=== PATIENT | female | born 1985 | race Caucasian/White ===

== ENCOUNTER → 2016-11-07 | Outpatient (CLI) | payer BC ==
[2014-09-10 16:29] VITALS: BP 112/56
[~2016-11-07] MED LIST: ALBU2.5V5 NEB; AZIT250T PO; DIPH25CA58 PO; IOHEXOL 240 MG/ML 50ML VIAL. ONE; IOHEXOL 300 MG/ML 75 ML VIAL. IV ONE; OSEL75CA PO; PRED50TA PO; PROM25SU32 RC
[2016-11-07 11:20] LABS: ALBUMIN 3.7 g/dL (3.4-5.0); ALBUMIN/GLOBULIN RATIO 1.3 (1.0-1.7); CALCIUM 8.6 mg/dL (8.5-10.1); GFR 63.9; POTASSIUM 4.2 mmol/L (3.5-5.1); TOTAL BILIRUBIN 0.4 mg/dL (0.2-1.0); TOTAL PROTEIN 6.6 g/dL (6.4-8.2)
--- NOTE | 2016-11-07 11:38 | RAD ---
Indication: Abdominal pain. Axial imaging through the abdomen and pelvis was performed after the administration of intravenous contrast. No prior studies are available for comparison. The lung bases are clear. The liver and gallbladder are unremarkable. Pancreas and spleen are unremarkable. No adrenal mass is identified. The kidneys are unremarkable. Aorta is nonaneurysmal. Evaluation of the bowel loops show focal "target sign" within the right para midline central abdomen image 33 series 2. This is identified image 14 on the coronal reconstructions and image 4 on the sagittal reconstructions. This is consistent with a focal small bowel to small bowel intussusception. However, no bowel obstruction is seen. No significant dilatation is identified. No wall thickening or pneumatosis is identified. There is no free air. There is no ascites. The bladder, uterus and ovaries are unremarkable apart from an IUD within the uterus which appears to be retroverted. Impression: Findings consistent with a focal small bowel to small bowel intussusception in the central abdomen. No bowel obstruction, pneumatosis, free air or abscess is identified. The study is otherwise unremarkable. PQRS Compliance Statement: One or more of the following individualized dose reduction techniques were utilized for this examination: 1. Automated exposure control 2. Adjustment of the mA and/or kV according to patient size 3. Use of iterative reconstruction technique
[2016-11-08 01:27] LABS: HCV ANTIBODY <0.1 s/co ratio (0.0-0.9); HEP B SURFACE ABDY Non Reactive (.)
[2016-11-09 15:07] LABS: GLIA IGA 1 units (0-19); GLIA IGG 2 units (0-19); TRANSGLUTAMINASE IGA AB <2 U/mL (0-3); TRANSGLUTAMINASE IGG AB <2 U/mL (0-5)
== END | disposition home or self-care (01) ==
LOC: CT 09:30
PROVIDERS: ATTEND Internal Medicine Gastroenterology
DX: K56.1 Intussusception (principal); Z97.5 Presence of (intrauterine) contraceptive device
CPT/HCPCS: 36415; 74177; 80053; 86706; 86803; 87340; Q9966; Q9967; 83516

== ENCOUNTER 2019-11-28 14:30 | Emergency (ER) | payer BC ==
[~2019-11-28] VITALS: Ht 162.6 cm; Wt 73.0 kg
[~2019-11-28 14:30] MED LIST changes: -IOHEXOL 240 MG/ML 50ML VIAL. ONE; -IOHEXOL 300 MG/ML 75 ML VIAL. IV ONE
[2019-11-28 14:33] VITALS: BP 112/56
--- NOTE | 2019-11-28 15:10 | PHYS DOC ---
Past History Past Medical History: Asthma, Other Past Surgical History: No Surgical History Smoking: Non-smoker Alcohol Use: Occasionally Drug Use: None Adult General Chief Complaint Chief Complaint: MECHANICAL FALL HPI HPI Patient is a 34 year old female who presents with complaint of jaw pain. The patient states that she had an accidental fall early yesterday morning at 0100. The patient states that she accidentally tripped and fell forward in her own home, striking her jaw on metal weightlifting plates in her home. She states that she had been drinking alcohol when this occurred. Notes that she is having pain along the left side of her jaw. States that the pain worsens when opening her mouth. Patient also is having pain near her left eye which she states also resulted as part of this fall. She states that she went to urgent care today and after their evaluation, they advised her to come to the emergency department for further evaluation due to concern for possible jaw fracture. Denies doubling or loss of vision. Denies any other injuries. States that she is safe in her home and denies any other complaints. States that she took ibuprofen and Tylenol earlier today at 1000 with mild relief in pain symptoms. Review of Systems Review of Systems Constitutional: Denies fever or chills [] Eyes: Denies change in visual acuity, redness, or eye pain [] HENT: Jaw pain, denies nasal congestion or sore throat [] Respiratory: Denies cough or shortness of breath [] Cardiovascular: No additional information not addressed in HPI [] GI: Denies abdominal pain, nausea, vomiting, bloody stools or diarrhea [] : Denies dysuria or hematuria [] Musculoskeletal: Denies back pain or joint pain [] Integument: Denies rash or skin lesions [] Neurologic: Denies headache, focal weakness or sensory changes [] All other systems were reviewed and found to be within normal limits, except as documented in this note. Allergies Allergies Allergies Coded Allergies Type Severity Reaction Last Updated Verified No Known Drug Allergies 11/10/13 No Physical Exam Physical Exam Constitutional: Alert, afebrile, no acute distress. [] HENT: Normocephalic, small ecchymosis present along the inferior lateral portion of left periorbitum, ecchymosis present along left mandibular ridge extending towards chin, tenderness to palpation at angle of left mandible and near the anterior portion of right mandible, bilateral external ears normal, oropharynx moist, no oral exudates, nose normal. [] Eyes: PERRLA, EOMI, conjunctiva normal, no discharge. [] Neck: Normal range of motion, no tenderness, supple, no stridor. [] Cardiovascular:Heart rate regular rhythm, no murmur [] Lungs & Thorax: Bilateral breath sounds clear to auscultation [] Abdomen: Bowel sounds normal, soft, no tenderness, no masses, no pulsatile masses. [] Skin: Warm, dry, no erythema, no rash. [] Back: No tenderness, no CVA tenderness. [] Extremities: No tenderness, no cyanosis, no clubbing, ROM intact, no edema. [] Neurologic: Alert and oriented X 3, normal motor function, normal sensory function, no focal deficits noted. [] Current Patient Data Lab Results Not performed EKG EKG Not performed [] Radiology/Procedures Radiology/Procedures [address] [address] IMAGING REPORT Signed PATIENT: KALEIGH GUERRA ACCOUNT: [id number] : 1985 LOCATION: ER AGE: 34 SEX: F EXAM STATUS: REG ER ORD. PHYSICIAN: KATHERIN DONAHUE MD REASON: fall, head and facial trauma , unable to remove earrings PROCEDURE: CT HEAD AND MAXILLOFACIAL WO CT HEAD AND MAXILLOFACIAL WO Date: 11/28/2019 2:54 PM Clinical Indication: fall, head and facial trauma , unable to remove earrings Comparison: None. Technique: 5 mm axial tomographic images were obtained of the head without contrast. These were viewed on brain and bone windows. Axial helical images of the face were obtained without contrast. Axial and coronal reconstruction was performed. One or more of the following dose reduction techniques were utilized: Automated exposure control (AEC), Adjustment of mA and/or kV according to patient size, Use of iterative reconstruction technique such as ASiR, CT scan done according to ALARA and image gently/image wisely CT HEAD FINDINGS: The brain parenchyma is normal in attenuation. No intra- or extra-axial mass or fluid collection. No acute hemorrhage. The ventricles are normal in size, shape, and morphology. The soria-white matter junction is normal. The basilar cisterns are patent. The mastoid air cells are clear. No aggressive osseous lesion or fracture. CT FACE FINDINGS: There is no acute facial bone fracture. The paranasal sinuses are clear. The orbits are normal. The globes are intact. The nasal septum is deviated to the right anteriorly. Elongation of the styloid processes/ossification of the stylohyoid ligaments. Impression: 1. No acute intracranial process. 2. No acute facial bone fracture. Electronically signed by: Vladimir Lynch MD (11/28/2019 3:27 PM) [id number] DICTATED AND SIGNED BY: VLADIMIR LYNCH MD DATE: 11/28/19 1527 CC: KATHERIN DONAUHE MD; KEERTHI CUELLAR ~ [] Course & Med Decision Making Course & Med Decision Making Pertinent Labs and Imaging studies reviewed. (See chart for details) CT imaging negative. Patient's evaluation appears consistent with facial contusions. Advise continued RICE therapy at home and recommended follow-up in 1 week with primary doctor for reevaluation. Advised return to the emergency department for any worsening symptoms. Patient voiced understanding and agreement with treatment plan. [] Dragon Disclaimer Dragon Disclaimer This electronic medical record was generated, in whole or in part, using a voice recognition dictation system. Departure Departure: Impression: Primary Impression: Contusion of mandibular joint area Additional Impressions: Periorbital contusion of left eye Closed head injury Disposition: 01 HOME/RESIDENCE PRIOR TO ADM Condition: STABLE Referrals: KEERTHI CUELLAR (PCP) Patient Instructions: Facial or Scalp Contusion, Head Injury, Adult Additional Instructions: Follow-up with your primary care provider in the next 7 days if symptoms or not improving. Return to the emergency department for any worsening symptoms. Problem Qualifiers Primary Impression: Contusion of mandibular joint area Encounter type: initial encounter Qualified Codes: S00.83XA - Contusion of other part of head, initial encounter Additional Impressions: Periorbital contusion of left eye Encounter type: initial encounter Qualified Codes: S05.12XA - Contusion of eyeball and orbital tissues, left eye, initial encounter Closed head injury Encounter type: initial encounter Qualified Codes: S09.90XA - Unspecified injury of head, initial encounter KATHERIN DONAHUE MD November 28, 2019 15:10
--- NOTE | 2019-11-28 15:30 | RAD ---
CT HEAD AND MAXILLOFACIAL WO Date: 11/28/2019 2:54 PM Clinical Indication: fall, head and facial trauma , unable to remove earrings Comparison: None. Technique: 5 mm axial tomographic images were obtained of the head without contrast. These were viewed on brain and bone windows. Axial helical images of the face were obtained without contrast. Axial and coronal reconstruction was performed. One or more of the following dose reduction techniques were utilized: Automated exposure control (AEC), Adjustment of mA and/or kV according to patient size, Use of iterative reconstruction technique such as ASiR, CT scan done according to ALARA and image gently/image wisely CT HEAD FINDINGS: The brain parenchyma is normal in attenuation. No intra- or extra-axial mass or fluid collection. No acute hemorrhage. The ventricles are normal in size, shape, and morphology. The soria-white matter junction is normal. The basilar cisterns are patent. The mastoid air cells are clear. No aggressive osseous lesion or fracture. CT FACE FINDINGS: There is no acute facial bone fracture. The paranasal sinuses are clear. The orbits are normal. The globes are intact. The nasal septum is deviated to the right anteriorly. Elongation of the styloid processes/ossification of the stylohyoid ligaments. Impression: 1. No acute intracranial process. 2. No acute facial bone fracture. Electronically signed by: Broderick Lynch MD (11/28/2019 3:27 PM) [id number]
== END 2019-11-28 16:06 | disposition home or self-care (01) ==
LOC: ER 14:30
DX: S00.83XA Contusion of other part of head, initial encounter (principal); S05.12XA Contusion of eyeball and orbital tissues, left eye, initial encounter; J45.909 Unspecified asthma, uncomplicated; W01.0XXA Fall on same level from slipping, tripping and stumbling without subsequent striking against object, initial encounter; Y93.89 Activity, other specified; Y92.89 Other specified places as the place of occurrence of the external cause; Y99.8 Other external cause status
CPT/HCPCS: 70450; 70486; 99285-25

== ENCOUNTER → 2020-01-07 | Outpatient (CLI) | payer BC ==
--- NOTE | 2020-01-07 15:10 | RAD ---
Examination: Ultrasound abdomen complete HISTORY: History of elevated liver function tests COMPARISON: None available. FINDINGS: The liver length measures 14.4 cm . The echogenicity of the liver grossly appears unremarkable. The common bile duct measures 2 mm in diameter. The right kidney measures 10.4 x 4.8 x 4.1 cm. The left kidney measures 10.3 x 4.6 x 5.8 cm. The spleen measures 9.2 cm in length. No evidence of gallstones. The visualized aorta, IVC within normal limits of dimension. The visualized pancreas grossly appears unremarkable. IMPRESSION: Unremarkable visualized exam. Electronically signed by: Karlos Dubon MD (01/07/2020 3:06 PM) [id number]
== END ==
LOC: US 13:53
PROVIDERS: ATTEND Physician Assistant Medical
DX: R79.89 Other specified abnormal findings of blood chemistry (principal)
CPT/HCPCS: 76700

== ENCOUNTER 2020-09-14 03:47 | Emergency (ER) | payer BC ==
[~2020-09-14] VITALS: Ht 162.6 cm; Wt 73.0 kg
[2020-09-14] MEDS ORDERED: IPRATRPIUM/ALBUTEROL 0.5/2.5MG 3 ML NEBU. ONE (03:54)
--- NOTE | 2020-09-14 03:57 | PHYS DOC ---
Past History Past Medical History: Asthma, Other Past Surgical History: No Surgical History Smoking: Non-smoker Alcohol Use: Occasionally Drug Use: None General Adult EDM: Chief Complaint: ASTHMA HPI: HPI: "..I can't ... breath... It... got ... bad... to... night...".." I fell..hit my back... ".." That .. seemed ... to ... start it ... off...' Patient is a 35 year old female who presents with acute respiratory distress. Patient again tried proposition and hypoxic on room air. Accessory muscle use with intercostal retraction. Patient has history of asthma. Has had exacerbations in the past. Not currently on steroids. Patient never been intubated for asthma exacerbations. Patient recently fell and abraded her back. Patient has not been on steroids for more than a month. Patient up-to-date with other vaccinations. No recent travel. No severe contacts. . Patient states in the past is only used steroids possibly twice a year. Pt. normally follows with [facility]. Review of Systems: Review of Systems: Constitutional: Denies fever or chills Eyes: Denies change in visual acuity HENT: Denies nasal congestion or sore throat Respiratory: Complains of cough and shortness of breath Cardiovascular: Complains of chest pain at area of abrasion and contusion on back. GI: Denies abdominal pain, nausea, vomiting, bloody stools or diarrhea : Denies dysuria Musculoskeletal: Denies back pain or joint pain Integument: Denies rash Neurologic: Denies headache, focal weakness or sensory changes Endocrine: Denies polyuria or polydipsia Lymphatic: Denies swollen glands Psychiatric: Denies depression or anxiety Family History: Family History: Noncontributory to presentation Current Medications: Current Meds: Current Medications Medications (Trade) Dose Ordered Sig/Wendy Start Time Stop Time Status Last Admin Dose Admin Albuterol/ Ipratropium (Duoneb) 3 ml STK-MED ONCE 09/14/20 03:54 09/14/20 03:55 DC Allergies: Allergies: Allergies Coded Allergies Type Severity Reaction Last Updated Verified No Known Drug Allergies 11/10/13 No Physical Exam: PE: Constitutional: Well developed, well nourished, in acute distress, non-toxic appearance. [] HENT: Normocephalic, atraumatic, bilateral external ears normal, oropharynx moist, no oral exudates, nose: Turbinates clear rhinorrhea Eyes: PERRLA, EOMI, conjunctiva normal, no discharge. [] Neck: Normal range of motion, no tenderness, supple, no stridor. [] Cardiovascular: Tachycardia heart rate regular rhythm, no murmur [] Lungs & Thorax: Bilateral breath sounds equal apex with scattered wheezing throughout on auscultation [] intercostal retraction. Abdomen: Bowel sounds normal, soft, no tenderness, no masses, no pulsatile masses. [] Skin: Warm, dry, no erythema, no rash. Tattoos Back: Spinal tenderness, no CVA tenderness.. Abrasion down spine T6-L1 Extremities: No tenderness, no cyanosis, no clubbing, ROM intact, no edema. [] No cording appreciated. Neurologic: Alert and oriented X 3, normal motor function, normal sensory function, no focal deficits noted. [] Psychologic: Affect anxious, judgement normal, mood normal. [] EKG: EKG: [] Radiology/Procedures: Radiology/Procedures: [][place] [id number] IMAGING REPORT Signed PATIENT: KALEIGH GUERRA ACCOUNT: [id number] : 1985 LOCATION: ER AGE: 35 SEX: F EXAM STATUS: REG ER ORD. PHYSICIAN: NOMAN LEES MD REASON: dyspnea, respiratory failure PROCEDURE: PORTABLE CHEST 1V Chest AP portable at 0355: Reason for examination: Dyspnea and respiratory failure. The heart size is normal. Mediastinum is unremarkable. Lung paulino are hyperaerated but show no infiltrates or pleural effusions.. No acute bony abnormalities are seen. Impression: No acute cardiopulmonary disease. Electronically signed by: Howard Lopes MD (09/14/2020 4:12 AM) [facility] DICTATED AND SIGNED BY: HOWARD LOPES MD DATE: 09/14/20 0411 CC: NOMAN LEES MD; KEERTHI CUELLAR ~MTH0 0 Heart Score: C/O Chest Pain: Yes HEART Score for Chest Pain: HEART Score for Chest Pain Response (Comments) Value History Moderately Suspicious 1 ECG Nonspecific Repolarizatio 1 Age < 45 0 Risk Factors 1 or 2 Risk Factors 1 Troponin < Normal Limit 0 Total 3 Risk Factors: Risk Factors: DM, Current or recent (<one month) smoker, HTN, HLP, family history of CAD, obesity. Risk Scores: Score 0 - 3: 2.5% MACE over next 6 weeks - Discharge Home Score 4 - 6: 20.3% MACE over next 6 weeks - Admit for Clinical Observation Score 7 - 10: 72.7% MACE over next 6 weeks - Early Invasive Strategies Course & Med Decision Making: Course & Med Decision Making Pertinent Labs and Imaging studies reviewed. (See chart for details) Patient started on continuous DuoNeb.. Given Solu-Medrol 125. Morphine 10 mg subcu for abrasion and back pain. Patient given 2 g of magnesium IV. And fluid bolus. Pt. to use MDI two puffs four times a day or Duneb for times a day. Tylenol and Ibuprofen as needed for pain. Vicoprofen for marked pain. Prednisone 50 daily x 5 days. Return if any concerns. Follow up with primary. Flovent two puffs every night. Polysporin 4 x day to abrasion. Impression: 1. Respiratory failure-hypoxia 2. Asthma exacerbation 3. Abrasion contusion to back [] Marilin Disclaimer: Marilin Disclaimer: This electronic medical record was generated, in whole or in part, using a voice recognition dictation system. Departure Departure: Referrals: KEERTHI CUELLAR (PCP) Scripts Fluticasone Propionate (FLOVENT 110MCG HFA) 12 Gm Aer.w.adap 2 PUFF IH BID for asthma , allergy, #1 INHALER 2 Refills Prov: NOMAN LEES MD 09/14/20 Albuterol Sulfate (VENTOLIN HFA INHALER) 18 Gm Hfa.aer.ad 2 PUFF IH PRN Q4HRS PRN for FOR ASTHMA for 90 Days, EACH 0 Refills Prov: NOMAN LEES MD 09/14/20 Ipratropium [place] (ATROVENT HFA) 12.9 Gm Hfa.aer.ad 12.9 GM IH QIDPRN PRN for WHEEZING, #120 INHALER Prov: NOMAN LEES MD 09/14/20 Albuterol Sulfate (ALBUTEROL SULFATE CONC NEB SOLN) 2.5 Mg/0.5 Ml Vial.neb 2.5 MG NEB QIDPRN PRN for WHEEZING, #120 EACH 0 Refills Prov: NOMAN LEES MD 09/14/20 Hydrocodone/Ibuprofen (HYDROCODONE-IBUPROFEN 7.5-200 ) 1 Each Tablet 1 TAB PO PRN Q6HRS PRN for PAIN, #30 TAB 0 Refills Prov: NOMAN LEES MD 09/14/20 Prednisone (PREDNISONE) 50 Mg Tablet 50 MG PO DAILY for asthma for 5 Days, #5 TAB Prov: NOMAN LEES MD 09/14/20 Dragon Disclaimer This chart was dictated in whole or in part using Voice Recognition software in a busy, high-work load, and often noisy Emergency Department environment. It may contain unintended and wholly unrecognized errors or omissions. NOMAN LEES MD Sep 14, 2020 03:57
--- NOTE | 2020-09-14 04:14 | RAD ---
Chest AP portable at 0355: Reason for examination: Dyspnea and respiratory failure. The heart size is normal. Mediastinum is unremarkable. Lung paulino are hyperaerated but show no infil trates or pleural effusions.. No acute bony abnormalities are seen. Impression: No acute cardiopulmonary disease. Electronically signed by: Mandy Alvarez MD (09/14/2020 4:12 AM) [email or web address]
[2020-09-14] MEDS ORDERED: IPRATRPIUM/ALBUTEROL 0.5/2.5MG 3 ML NEBU. NEB ONE ×2 (04:15→04:30)
[2020-09-14] MEDS ORDERED: MORPHINE SULFATE 10 MG/ML SYRINGE. SQ ONE (04:15)
[2020-09-14 04:25] LABS: BASO # 0.1 x10^3/uL (0.0-0.2); BASO % 1 % (0-3); EOS # 0.2 x10^3/uL (0.0-0.7); EOS % 2 % (0-3); HEMOGLOBIN 12.6 g/dL (12.0-15.5); LYMPH # 2.8 x10^3/uL (1.0-4.8); LYMPH % 26 % (24-48); MEAN CORPUSCULAR HEMOGLOBIN 31 pg (25-35); MEAN CORPUSCULAR HGB CONC 33 g/dL (31-37); MEAN CORPUSCULAR VOLUME 95 fL (79-100); MONO # 0.7 x10^3/uL (0.0-1.1); MONO % 6 % (0-9); NEUT # 7.2 x10^3uL (1.8-7.7); NEUT % 66 % (31-73); PLATELET COUNT 264 x10^3/uL (140-400); RED BLOOD COUNT 4.01 x10^6/uL (3.50-5.40); RED CELL DISTRIBUTION WIDTH 13.8 % (11.5-14.5); WHITE BLOOD COUNT 10.9 x10^3/uL (4.0-11.0)
[2020-09-14] MEDS ORDERED: IV RINGERS SOLUTION,LACTATED 1,000 ML IV SCH (04:30)
[2020-09-14] MEDS ORDERED: methylPREDNISolone SOD SUCC PF 125 MG/2 ML VIAL. IV ONE (04:30)
[2020-09-14] MEDS ORDERED: MAGNESIUM SULFATE 2GM 50 ML IV ONE (04:30)
[2020-09-14 04:36] LABS: CREATININE 1.2 mg/dL (0.6-1.0); GFR 50.6; POTASSIUM 3.5 mmol/L (3.5-5.1)
[2020-09-14 04:51] LABS: ALBUMIN 3.9 g/dL (3.4-5.0); DIRECT BILIRUBIN 0.1 mg/dL (0.0-0.2); MAGNESIUM 1.9 mg/dL (1.8-2.4); TOTAL BILIRUBIN 0.2 mg/dL (0.2-1.0)
[2020-09-14] MEDS ORDERED: HYDR-1179 PO (05:02)
[2020-09-14] MEDS ORDERED: PRED50TA PO (05:02)
[2020-09-14] MEDS ORDERED: FLUT12AE IH (05:12)
[2020-09-14] MEDS ORDERED: ALBU2.5V8 IH (05:12)
[2020-09-14] MEDS ORDERED: ALBU2.5V14 NEB (05:12)
[2020-09-14] MEDS ORDERED: IPRA12.9 IH (05:12)
[2020-09-14 05:50] VITALS: BP 106/50
== END 2020-09-14 05:50 | disposition home or self-care (01) ==
LOC: ER 03:47
DX: S30.0XXA Contusion of lower back and pelvis, initial encounter (principal); J96.91 Respiratory failure, unspecified with hypoxia; J45.901 Unspecified asthma with (acute) exacerbation; W18.39XA Other fall on same level, initial encounter; Y93.89 Activity, other specified; Y92.89 Other specified places as the place of occurrence of the external cause; Y99.8 Other external cause status
CPT/HCPCS: 36415; 71045; 80048; 80076; 82550; 83690; 83735; 83880; 84443; 84484; 84702; 85025; 85379; 85610; 85730; 94640; 96365; 96366; 96372; 96375; 99285; J2270; J2930; J3475; J7120